=== PATIENT | female | born 1985 | race Caucasian/White ===

== ENCOUNTER 2018-04-03 17:03 | Emergency (ER) | payer MEDICAID ==
--- NOTE | 2018-04-03 18:01 | ER Document Report ---
ED Medical Screen (RME) - General Chief Complaint: Vaginal Bleeding Stated Complaint: VAGINAL BLEEDING Time Seen by Provider: 04/03/18 17:54 Notes: 32-year-old female 7 weeks spotting today with lower abdominal cramps. Also complains of pain on the left breast when she breathes and for the past 2 days. She had preeclampsia with a prior , a small pneumothorax that did not require intervention, and a at 6 weeks. I have greeted and performed a rapid initial assessment of this patient. A comprehensive ED assessment and evaluation of the patient, analysis of test results and completion of the medical decision making process will be conducted by additional ED providers. TRAVEL OUTSIDE OF THE [place] IN LAST 30 DAYS: No - Related Data Allergies/Adverse Reactions: Penicillins Allergy (Verified 04/03/18 17:04) Past Medical History - General Last Menstrual Period: 02/14 - Social History Chew tobacco use (# tins/day): No Frequency of alcohol use: Rare Drug Abuse: None Renal/ Medical History: Denies: Hx Peritoneal Dialysis Physical Exam - Vital signs Vitals: Temp Pulse Resp BP Pulse Ox 98.9 F 77 16 120/65 98 04/03/18 17:18 04/03/18 17:18 04/03/18 17:18 04/03/18 17:18 04/03/18 17:18 Course - Vital Signs Vital signs: Temp Pulse Resp BP Pulse Ox 98.9 F 77 16 120/65 98 04/03/18 17:18 04/03/18 17:18 04/03/18 17:18 04/03/18 17:18 04/03/18 17:18
[2018-04-03 18:25] LABS: ABSOLUTE BASOPHILS # (AUTO) 0.1 10^3/uL (0.0-0.2); ABSOLUTE EOSINOPHILS # (AUTO) 0.1 10^3/uL (0.0-0.6); ABSOLUTE LYMPHOCYTES (AUTO) 2.2 10^3/uL (0.5-4.7); ABSOLUTE MONOCYTES (AUTO) 0.5 10^3/uL (0.1-1.4); BASOPHILS % (AUTO) 0.6 % (0-2); EOSINOPHILS % (AUTO) 0.5 % (0-6); HEMATOCRIT 40.1 % (36.0-47.0); HEMOGLOBIN 13.9 g/dL (12.0-15.5); LYMPHOCYTES % (AUTO) 20.4 % (13-45); MEAN CORPUSCULAR HEMOGLOBIN 33.5 pg (27.0-33.4); MEAN CORPUSCULAR HGB CONC 34.8 g/dL (32.0-36.0); MEAN CORPUSCULAR VOLUME 96 fl (80-97); MONOCYTES % (AUTO) 4.7 % (3-13); RED BLOOD COUNT 4.16 10^6/uL (3.72-5.28); RED CELL DISTRIBUTION WIDTH 12.6 % (11.5-14.0); SEGMENTED NEUTROPHILS % (AUTO) 73.8 % (42-78); TOTAL CELLS COUNTED % (AUTO) 100 %; WHITE BLOOD COUNT 10.8 10^3/uL (4.0-10.5)
--- NOTE | 2018-04-03 18:49 | ER Document Report ---
ED General - General Mode of Arrival: Ambulatory Information source: Patient TRAVEL OUTSIDE OF THE [place] IN LAST 30 DAYS: No <JASMIN HARRIS - Last Filed: 04/03/18 22:48> <ADRIANO MANZANARES - Last Filed: 04/04/18 01:38> - General Chief Complaint: Vaginal Bleeding Stated Complaint: VAGINAL BLEEDING Time Seen by Provider: 04/03/18 17:54 Notes: 32 y.o female presents to the ED with pain just below her LT breast and radiating to her back of onset a couple of days ago. Pt reports that she is and her last menstrual period was February 14. She has been having vaginal bleeding and lower abd cramping for the past couple days as well. She describes the vaginal bleeding as a scant amount initially when she wiped but currently is spotting. She reports that she's had a blood clot with a previous . She denies any SOB, recent cough or congestion. (JASMIN HARRIS) - Related Data Allergies/Adverse Reactions: Penicillins Allergy (Verified 04/03/18 17:04) Past Medical History - General Information source: Patient Last Menstrual Period: 02/14 - Social History Smoking Status: Never Smoker Chew tobacco use (# tins/day): No Frequency of alcohol use: Rare Drug Abuse: None Family History: Reviewed & Not Pertinent Patient has suicidal ideation: No Patient has homicidal ideation: No Renal/ Medical History: Denies: Hx Peritoneal Dialysis <JASMIN HARRIS - Last Filed: 04/03/18 22:48> Review of Systems - Review of Systems Constitutional: No symptoms reported EENT: denies: Nose congestion Cardiovascular: See HPI, Chest pain - Just below LT breast, radiating to back Respiratory: See HPI. denies: Cough, Short of breath Gastrointestinal: See HPI, Abdominal pain - Lower abd cramping Genitourinary: No symptoms reported Female Genitourinary: See HPI, Last menstrual period - February 14, , Vaginal bleeding Musculoskeletal: No symptoms reported Skin: No symptoms reported Hematologic/Lymphatic: No symptoms reported Neurological/Psychological: No symptoms reported -: Yes All other systems reviewed and negative <JASMIN HARRIS - Last Filed: 04/03/18 22:48> Physical Exam <JASMIN HARRIS - Last Filed: 07/05/18 22:48> <ADRIANO MANZANARES - Last Filed: 04/04/18 01:38> - Vital signs Vitals: Temp Pulse Resp BP Pulse Ox 98.9 F 77 16 120/65 98 04/03/18 17:18 04/03/18 17:18 04/03/18 17:18 04/03/18 17:18 04/03/18 17:18 - Notes Notes: Physical Exam: General: Alert, appears well. HEENT: Normocephalic. Atraumatic. PERRL. Extraocular movements intact. Oropharynx clear. Neck: Supple. Non-tender. Respiratory: No respiratory distress. Clear and equal breath sounds bilaterally. Cardiovascular: Regular rate and rhythm. Abdominal: Normal Inspection. Non-tender. No distension. Normal Bowel Sounds. Back: Non-tender. No deformity or step off. Extremities: Moves all four extremities. Upper extremities: Normal inspection. Normal ROM. Lower extremities: Normal inspection. No edema. Normal ROM. Neurological: Normal cognition. AAOx3. Normal speech. Psychological: Normal affect. Normal Mood. Skin: Warm. Dry. Normal color. (JASMIN HARRIS) Course - Laboratory Result Diagrams: 04/03/18 18:09 04/03/18 18:09 <JASMIN HARRIS - Last Filed: 04/03/18 22:48> - Laboratory Result Diagrams: 04/03/18 18:09 04/03/18 18:09 <ADRIANO MANZANARES - Last Filed: 04/04/18 01:38> - Re-evaluation Re-evalutation: 04/03/18 20:29 Patient presents with concerns of vaginal bleeding having pleuritic chest pain. She has a history of having blood clots with a previous . CTA reveals no concerning findings. Vaginal ultrasound shows live intrauterine . Discussed with patient with vaginal bleeding she has threatened miscarriage and is to have hormone levels checked in 2 days if bleeding continues. 04/03/18 20:31 Pending urine will provide antibiotics if needed otherwise will be discharged with OB GEN referral as she does not have an OB GEN at this time. patient states she is taking vitamins daily. 04/03/18 20:46 Urinalysis shows evidence of infection. Culture drawn Macrobid provided. (ADRIANO MANZANARES) - Vital Signs Vital signs: Temp Pulse Resp BP Pulse Ox 98.9 F 78 16 114/70 99 04/03/18 20:54 04/03/18 20:54 04/03/18 20:54 04/03/18 20:54 04/03/18 20:54 - Laboratory Laboratory results interpreted by me: 04/03/18 04/03/18 04/03/18 18:09 18:09 18:09 WBC 10.8 H MCH 33.5 H Carbon Dioxide 21 L Beta HCG, Quant 96887.00 H Urine Ketones Urine Blood Ur Leukocyte Esterase 04/03/18 20:24 WBC MCH Carbon Dioxide Beta HCG, Quant Urine Ketones TRACE H Urine Blood SMALL H Ur Leukocyte Esterase LARGE H Discharge <JASMIN HARRIS - Last Filed: 04/03/18 22:48> <ADRIANO MANZANARES - Last Filed: 04/04/18 01:38> - Discharge Clinical Impression: Vaginal bleeding during UTI (urinary tract infection) Qualifiers: Urinary tract infection type: site unspecified Hematuria presence: with hematuria Qualified Code(s): N39.0 - Urinary tract infection, site not specified Disposition: HOME, SELF-CARE Instructions: Bleeding During Early ([facility]), Urinary Tract Infection ( [facility]) Prescriptions: Nitrofurantoin Monohyd/M-Cryst [Macrobid 100 mg Capsule] 1 tab PO BID #20 capsule Referrals: ALEKSANDRA PUENTES MD [ACTIVE STAFF] - Follow up as needed (Please have your beta hCG levels checked in 2 days for trending if vaginal bleeding continues.) Scribe Attestation: 04/04/18 01:38 I personally performed the services described documentation, reviewed and edited the documentation which was dictated to describe my presence, and it accurately records my words and actions. (ADRIANO MANZANARES) Scribe Documentation - Scribe Written by Yayo:: Yayo Engel 04/03/18 [id number] acting as scribe for :: Felix <JASMIN HARRIS - Last Filed: 04/03/18 22:48>
[2018-04-03 18:52] LABS: PLATELET COUNT 235 10^3/uL (150-450)
--- NOTE | 2018-04-03 18:58 | RADIOLOGY REPORT (SQ) ---
EXAM DESCRIPTION: U/S OB TRANSVAGINAL W/O DOP COMPLETED DATE/TIME: 04/03/2018 6:42 pm REASON FOR STUDY: LMP 5-18-18, cramps, spotting COMPARISON: None. TECHNIQUE: Transvaginal static and realtime grayscale images acquired of the pelvis. Additional kev cted spectral and color Doppler images recorded. All images stored on PACs. bHCG: Not available. CLINICAL DATES: 6 weeks 6 days LIMITATIONS: None. FINDINGS: FETUS: Living intrauterine . ULTRASOUND EGA: 6 weeks 4 days ULTRASOUND EMPERATRIZ: 11/23/2018 CRL: 6.8 mm FHR: 115 beats per minute. SUBCHORIONIC BLEED: No SIZE OF BLEED: Not applicable. UTERUS: No masses. No anomalies. CERVICAL LENGTH: 4.2 cm Closed. RIGHT ADNEXA: Normal ovary with normal vascular flow. No adnexal free fluid. No adnexal masses. LEFT ADNEXA: Normal ovary with normal vascular flow. No adnexal free fluid. No adnexal masses. FREE FLUID: None. OTHER: No other significant finding. IMPRESSION: LIVING INTRAUTERINE . EGA 6 weeks 4 days Trimester of : First - 0 to 13 weeks. TECHNICAL DOCUMENTATION: JOB ID: [id number] [place]-72 2010 [employer]- All Rights Reserved Reading location - IP/workstation name: [email or web address]
[2018-04-03 19:31] LABS: ANION GAP 12 (5-19); BLOOD UREA NITROGEN 15 mg/dL (7-20); CALCIUM 9.3 mg/dL (8.4-10.2); CARBON DIOXIDE 21 mmol/L (22-30); CHLORIDE 107 mmol/L (98-107); GLUCOSE 81 mg/dL (75-110); POTASSIUM 4.3 mmol/L (3.6-5.0); SODIUM 140.1 mmol/L (137-145)
--- NOTE | 2018-04-03 20:08 | RADIOLOGY REPORT (SQ) ---
EXAM DESCRIPTION: CTA CHEST COMPLETED DATE/TIME: 04/03/2018 7:46 pm REASON FOR STUDY: sharp pain with breathing, preg, hx of PE COMPARISON: None. TECHNIQUE: CT scan of the chest performed using helical scanning technique with dynamic intravenous contrast injection. Images reviewed with lung, soft tissue and bone windows. Reconstructed coronal and sagittal MPR images reviewed. Additional 3 dimensional post-processing performed to develop Maximal Intensity Projection images (NC P). All images stored on PACS. All CT scanners at this facility use dose modulation, iterative reconstruction, and/or weight based d osing when appropriate to reduce radiation dose to as low as reasonably achievable (ALARA). [facility]: Dose Right [facility]: CareDose [facility]: Dose Right [facility]: Teradose 4D [facility]: Skubana CONTRAST TYPE AND DOSE: contrast/concentration: Isovue 370.00 mg/ml; Total Contrast Delivered: 71.0 ml; Total Saline Delivered: 62.0 ml Contrast bolus adequate for pulmonary arteries and aorta. RENAL FUNCTION: None required. The patient is less than 50 years old. RADIATION DOSE: CT Rad equipment meets quality standard of care and radiation dose reduction techniq ues were employed. CTDIvol: 5.0 - 16.8 mGy. DLP: 567 mGy-cm. . LIMITATIONS: None. FINDINGS: LUNGS AND PLEURA: No masses, infiltrates, or pneumothorax. No pleural effusions or pleura l calcifications. AORTA AND GREAT VESSELS: No aneurysm. Contrast bolus not optimized for the aorta. HEART: No pericardial effusion. No significant coronary artery calcifications. PULMONARY ARTERIES: No emboli visualized in the main pulmonary arteries or the segmental branches. HILAR AND MEDIASTINAL STRUCTURES: No identified masses or abnormal nodes. HARDWARE: None in the chest. UPPER ABDOMEN: No significant findings. Limited exam. THYROID AND OTHER SOFT TISSUES: No masses. No adenopathy. BONES: No acute or significant finding. 3D MIPS: Confirm above findings. OTHER: No other significant finding. IMPRESSION: No emboli visualized in the main pulmonary arteries or the segmental branches. COMMENT: Quality ID # [id number]: Final reports with documentation of one or more dose reduction techniques (e.g., Automated exposure control, adjustment of the mA and/or kV according to patient size, use of iterative reconstruction technique) TECHNICAL DOCUMENTATION: JOB ID: [id number] [place]-72 2010 [employer]- All Rights Reserved Reading location - IP/workstation name: [email or web address]
[2018-04-03] MEDS ORDERED: NORMAL SALINE 1000 ML 1,000 ML IV ONE (20:17)
[2018-04-03 20:43] LABS: APPEARANCE,URINE SLIGHTLY-CLOUDY; BILIRUBIN,URINE NEGATIVE (NEGATIVE); COLOR,URINE YELLOW; GLUCOSE, URINE NEGATIVE (NEGATIVE); KETONES,URINE TRACE mg/dL (NEGATIVE); LEUKOCYTE ESTERASE,URINE LARGE (NEGATIVE); NITRITE,URINE NEGATIVE (NEGATIVE); PROTEIN,URINE NEGATIVE (NEGATIVE); UROBILINOGEN,URINE NEGATIVE mg/dL (<2.0)
[2018-04-03 20:44] LABS: URINE SPECIFIC GRAVITY > 1.060
[2018-04-03 20:57] VITALS: BP 114/70
== END 2018-04-03 21:16 | disposition home or self-care (01) ==
LOC: ER 17:03
DX: O23.41 Unspecified infection of urinary tract in pregnancy, first trimester (principal); O46.91 Antepartum hemorrhage, unspecified, first trimester; O26.891 Other specified pregnancy related conditions, first trimester; R10.30 Lower abdominal pain, unspecified; Z3A.01 Less than 8 weeks gestation of pregnancy
CPT/HCPCS: 99284; 96360; 86900; 86901; 36415; 84702; 85025; 80048; 81001; 76817; 71275; J7030

== ENCOUNTER → 2018-12-03 | Outpatient (CLI) | payer OTHER ==
[2018-12-03 08:30] LABS: ABSOLUTE EOSINOPHILS # (AUTO) 0.2 10^3/uL (0.0-0.6); TOTAL CELLS COUNTED % (AUTO) 100 %
[2018-12-03 08:35] LABS: INTERNATIONAL RATION (INR) 0.94; PARTIAL THROMBOPLASTIN TIME 27.9 SEC (23.5-35.8)
[2018-12-03 08:38] LABS: ABSOLUTE LYMPHOCYTES (AUTO) 1.8 10^3/uL (0.5-4.7); ABSOLUTE MONOCYTES (AUTO) 0.4 10^3/uL (0.1-1.4); ABSOLUTE NEUT (AUTO) 3.8 10^3/uL (1.7-8.2); BASOPHILS % (AUTO) 0.7 % (0-2); EOSINOPHILS % (AUTO) 2.8 % (0-6); HEMATOCRIT 41.9 % (36.0-47.0); HEMOGLOBIN 14.4 g/dL (12.0-15.5); LYMPHOCYTES % (AUTO) 28.9 % (13-45); MEAN CORPUSCULAR HEMOGLOBIN 32.6 pg (27.0-33.4); MEAN CORPUSCULAR HGB CONC 34.5 g/dL (32.0-36.0); MEAN CORPUSCULAR VOLUME 95 fl (80-97); MONOCYTES % (AUTO) 5.8 % (3-13); PLATELET COUNT 217 10^3/uL (150-450); RED BLOOD COUNT 4.43 10^6/uL (3.72-5.28); RED CELL DISTRIBUTION WIDTH 12.7 % (11.5-14.0); SEGMENTED NEUTROPHILS % (AUTO) 61.8 % (42-78); WHITE BLOOD COUNT 6.1 10^3/uL (4.0-10.5)
[2018-12-03 08:59] LABS: ALANINE AMINOTRANSFERASE 40 U/L (9-52); ALBUMIN 4.5 g/dL (3.5-5.0); ALKALINE PHOSPHATASE 55 U/L (38-126); ANION GAP 12 (5-19); ASPARTATE AMINO TRANSFERASE 18 U/L (14-36); BILIRUBIN,DIRECT 0.1 mg/dL (0.0-0.4); BILIRUBIN,TOTAL 0.6 mg/dL (0.2-1.3); BLOOD UREA NITROGEN 10 mg/dL (7-20); CALCIUM 9.7 mg/dL (8.4-10.2); CARBON DIOXIDE 25 mmol/L (22-30); CHLORIDE 108 mmol/L (98-107); CHOLESTEROL 160.08 mg/dL (0-200); GLUCOSE 107 mg/dL (75-110); POTASSIUM 4.9 mmol/L (3.6-5.0); SODIUM 144.9 mmol/L (137-145); TOTAL PROTEIN 7.4 g/dL (6.3-8.2); TRIGLYCERIDES 87 mg/dL (<150)
[2018-12-03 09:10] LABS: DIRECT LDL 116 mg/dL (<100)
== END ==
LOC: CCC 07:53
DX: R51 Headache (principal)
CPT/HCPCS: 36415; 80053; 80061; 83036; 84443; 85025; 85610; 85730

== ENCOUNTER → 2018-12-17 | Outpatient (CLI) | payer OTHER ==
[2018-12-17 10:02] LABS: FREE T3 3.66 pg/mL (2.77-5.27); FREE T4 (FREE THYROXINE) 0.75 ng/dL (0.78-2.19)
[2018-12-18 06:39] LABS: THYROID PEROXIDASE (TPO) AB 37 IU/mL (0-34)
[2018-12-18 07:33] LABS: THYROGLOBULIN AB SO >2250.0 IU/mL (0.0-0.9)
== END ==
LOC: CCC 07:48
DX: R94.6 Abnormal results of thyroid function studies (principal)
CPT/HCPCS: 36415; 84439; 84481; 86376; 86800

== ENCOUNTER → 2019-03-19 | Outpatient (CLI) | payer OTHER ==
[2019-03-19 08:21] LABS: ABSOLUTE EOSINOPHILS # (AUTO) 0.2 10^3/uL (0.0-0.6); ABSOLUTE LYMPHOCYTES (AUTO) 2.2 10^3/uL (0.5-4.7); ABSOLUTE MONOCYTES (AUTO) 0.5 10^3/uL (0.1-1.4); ABSOLUTE NEUT (AUTO) 3.9 10^3/uL (1.7-8.2); BASOPHILS % (AUTO) 0.6 % (0-2); EOSINOPHILS % (AUTO) 2.8 % (0-6); HEMATOCRIT 42.2 % (36.0-47.0); HEMOGLOBIN 14.3 g/dL (12.0-15.5); MEAN CORPUSCULAR HEMOGLOBIN 31.6 pg (27.0-33.4); MEAN CORPUSCULAR HGB CONC 33.9 g/dL (32.0-36.0); MEAN CORPUSCULAR VOLUME 93 fl (80-97); MONOCYTES % (AUTO) 7.2 % (3-13); PLATELET COUNT 235 10^3/uL (150-450); RED BLOOD COUNT 4.52 10^6/uL (3.72-5.28); RED CELL DISTRIBUTION WIDTH 12.8 % (11.5-14.0); SEGMENTED NEUTROPHILS % (AUTO) 57.4 % (42-78); TOTAL CELLS COUNTED % (AUTO) 100 %; WHITE BLOOD COUNT 6.8 10^3/uL (4.0-10.5)
[2019-03-19 08:29] LABS: ALANINE AMINOTRANSFERASE 29 U/L (9-52); ALBUMIN 3.9 g/dL (3.5-5.0); ALKALINE PHOSPHATASE 60 U/L (38-126); ANION GAP 8 (5-19); ASPARTATE AMINO TRANSFERASE 16 U/L (14-36); BILIRUBIN,DIRECT 0.2 mg/dL (0.0-0.4); BILIRUBIN,TOTAL 0.4 mg/dL (0.2-1.3); BLOOD UREA NITROGEN 10 mg/dL (7-20); CALCIUM 9.2 mg/dL (8.4-10.2); CARBON DIOXIDE 22 mmol/L (22-30); CHLORIDE 111 mmol/L (98-107); CHOLESTEROL 160.46 mg/dL (0-200); GLUCOSE 111 mg/dL (75-110); POTASSIUM 4.2 mmol/L (3.6-5.0); SODIUM 141.2 mmol/L (137-145); TRIGLYCERIDES 105 mg/dL (<150)
[2019-03-19 08:39] LABS: DIRECT LDL 121 mg/dL (<100)
[2019-03-19 08:46] LABS: FREE T3 3.55 pg/mL (2.77-5.27); FREE T4 (FREE THYROXINE) 1.01 ng/dL (0.78-2.19)
[2019-03-19 08:59] LABS: THYROID STIMULATING HORMONE 4.14 uIU/mL (0.47-4.68)
[2019-03-19 09:04] LABS: ERYTHROCYTE SEDIMENTATION RATE 33 mm/hr (0-20)
== END ==
LOC: CCC 07:06
DX: E06.9 Thyroiditis, unspecified (principal)
CPT/HCPCS: 36415; 80053; 80061; 84439; 84443; 84481; 84550; 85025; 85652